=== PATIENT | female | born 1985 | race Caucasian/White ===

== ENCOUNTER 2020-07-15 13:54 | Emergency (ER) | payer MEDICAID ==
[~2020-07-15] VITALS: Ht 160 cm; Wt 62.8 kg
[2020-07-15 13:58] VITALS: BP 105/70
[2020-07-15 14:38] LABS: URINE HCG NEGATIVE (NEG)
[2020-07-15 14:44] LABS: COLOR,URINE STRAW (Yellow); GLUCOSE, URINE NEGATIVE (Neg); KETONES,URINE NEGATIVE (Neg); LEUKOCYTE ESTERASE ,URINE NEGATIVE (Neg); NITRITES, URINE NEGATIVE (Neg); OCCULT BLOOD,URINE NEGATIVE (Neg); PROTEIN,URINE NEGATIVE (Neg); UROBILINOGEN,URINE 0.2 E.U/dL (0.2-1.0)
[2020-07-15 14:49] LABS: UA COLLECTION TYPE CLN CATCH MIDSTREAM
[2020-07-15 14:52] LABS: CLARITY,URINE CLEAR (Clear)
[2020-07-15] MEDS ORDERED: ketorolac trometh inj. 60 MG/2 ML VIAL IM ONE (15:05)
== END 2020-07-15 15:26 | disposition home or self-care (01) ==
LOC: ER 13:55
DX: R10.32 Left lower quadrant pain (principal)
CPT/HCPCS: 81003; 81025; 96372; 99283; J1885